=== PATIENT | female | born 1995 | race Caucasian/White ===

== ENCOUNTER 2021-05-14 07:47 | Emergency (ER) | payer OTHER ==
[~2021-05-14] VITALS: Ht 152.4 cm; Wt 46.3 kg
[2021-05-14] MEDS ORDERED: OMEPRAZOLE-BIC1 EAC1 PO (08:00)
== END 2021-05-14 15:39 | disposition home or self-care (01) ==
LOC: ER 07:47
DX: O21.0 Mild hyperemesis gravidarum (principal); Z3A.12 12 weeks gestation of pregnancy; O36.80X0 Pregnancy with inconclusive fetal viability, not applicable or unspecified; Z03.818 Encounter for observation for suspected exposure to other biological agents ruled out

== ENCOUNTER 2021-09-10 14:04 | Emergency (ER) | payer OTHER ==
[~2021-09-10] VITALS: Ht 152.4 cm; Wt 52.2 kg
[~2021-09-10 14:04] MED LIST: OMEPRAZOLE-BIC1 EAC1 PO
[2021-09-10] MEDS ORDERED: MACROBID 100 M100 MG PO (16:46)
[2021-09-11] MEDS ORDERED: PRENA1 CHEW TA1.4 MG PO (12:16)
[2021-09-11] MEDS ORDERED: ZITHROMAX200 MG PO (15:44)
== END 2021-09-10 17:05 | disposition home or self-care (01) ==
LOC: ER 14:04
DX: O23.42 Unspecified infection of urinary tract in pregnancy, second trimester (principal); N39.0 Urinary tract infection, site not specified; Z3A.23 23 weeks gestation of pregnancy; Z37.0 Single live birth; R07.9 Chest pain, unspecified

== ENCOUNTER 2021-09-11 12:01 | Emergency (ER) | payer OTHER ==
[~2021-09-11] VITALS: Ht 152.4 cm; Wt 52.2 kg
[~2021-09-11 12:01] MED LIST changes: +MACROBID 100 M100 MG PO
[2021-09-11] MEDS ORDERED: PRENA1 CHEW TA1.4 MG PO (12:16)
[2021-09-11] MEDS ORDERED: ZITHROMAX200 MG PO (15:44)
== END 2021-09-11 16:26 | disposition home or self-care (01) ==
LOC: ER 12:01
DX: O26.892 Other specified pregnancy related conditions, second trimester (principal); Z3A.23 23 weeks gestation of pregnancy; Z37.0 Single live birth; R42 Dizziness and giddiness

== ENCOUNTER 2021-12-09 04:21 | Inpatient (IN) | payer OTHER ==
[~2021-12-09] VITALS: Ht 152.4 cm; Wt 57.6 kg
[~2021-12-09 04:21] MED LIST changes: +PRENA1 CHEW TA1.4 MG PO; +ZITHROMAX200 MG PO
== END 2021-12-11 15:20 | disposition home or self-care (01) | DRG 807 ==
LOC: LDR 04:21 → OB/GYN 04:21 → LDR 09:53 → OB/GYN 13:29
PROVIDERS: ADMIT Obstetrics & Gynecology; ATTEND Obstetrics & Gynecology
PROC: 10E0XZZ Delivery of Products of Conception, External Approach (ICD-10-PCS; principal; 2021-12-09)
PROC: 4A1HXCZ Monitoring of Products of Conception, Cardiac Rate, External Approach (ICD-10-PCS; 2021-12-09)
DX: O60.14X0 Preterm labor third trimester with preterm delivery third trimester, not applicable or unspecified (principal); Z37.0 Single live birth; Z3A.36 36 weeks gestation of pregnancy; Z20.822 Contact with and (suspected) exposure to COVID-19